=== PATIENT | female | born 1965 | race Caucasian/White ===

== ENCOUNTER → 2018-12-02 | Outpatient (CLI) | payer OTHER, MEDICARE ==
[~2018-12-02] VITALS: Ht 172.7 cm; Wt 111.6 kg
[~2018-12-02] MED LIST: ACYCLOVIR 400400 MG PO; ALBUTEROL SULFAT2 MG INH; AMOXICILLIN 50500 MG PO; ASPIR 8181 MG PO; CLONAZEPAM2 MG PO; CLONIDINE HCL0.1 MG PO; CRESTOR10 MG PO; ERGOCALCIF50000 UNIT PO; ESTRADIOL42.5 GM VAG; GLUCOPHAGE XR750 MG PO; METHYLPHENIDATE10 M2 PO; MIRALAX17 GM PO; MOBIC15 MG PO; OMEPRAZOLE40 MG PO; OXYBUTYNIN CHLO15 MG PO; PROCHLORPERAZINE5 M2 PO; SERTRALINE HCL100 MG PO; SLOW FE142 MG PO; STOOL SOFTENER100 MG PO; SYNTHROID150 MCG PO; VITAMIN B-121000 MC3 PO; WELLBUTRIN SR100 MG PO; ZONISAMIDE 100100 M1 PO
--- NOTE | ~2018-12-02 | P ---
[facility] [place] [address] PROCEDURE REPORT Name: CARIE SZYMANSKI Room #: REG TONI Melgoza#: [id number] Admission: 12/02/18 ������������������ Attend Phys: Tato Ceron Discharge: ������������������ Date of : 61 Report #: [id number] THIS REPORT FOR: //name// CC: Tato Price [facility] DATE OF SERVICE: 12/02/2018 PROCEDURE PERFORMED: Upper endoscopy with biopsies. HISTORY OF PRESENT ILLNESS: The patient is a 53-year-old female with midepigastric abdominal pain. She states it is fairly constant. She does take aspirin as well as Mobic, but also taking Prilosec 40 mg daily long-term for history of reflux. She does report intermittent dysphagia. No previous history of upper endoscopy. She reports black stools at times; however, Hemoccult testing of stools recently reported have been negative. Hemoglobin at 10.8 early November of this year. Plan is for EGD. DESCRIPTION OF PROCEDURE: The risks and benefits of the procedure were explained to the patient those risks including but not limited to bleeding, perforation and the risk of sedation. She understood these risks and gave informed consent. Sedation was given using propofol per anesthesia. Next, using a standard Olympus upper endoscope, the scope was placed in the patient's mouth and advanced under direct vision through the esophagus, stomach and into the second portion of the duodenum. The upper, mid and distal esophagus was all normal. The GE junction was normal. No evidence of esophagitis or stricture. Overall, the gastric mucosa was normal in the fundus. In the mid body, there appears to be a scar from previous PEG tube. This was well healed. In the antrum, there was a [id number] gastritis. No evidence of bleeding, no erosions or ulcerations. Biopsies were obtained to rule out H. pylori. The pylorus was normal and patent. The duodenal bulb, first and second portion were all normal. Biopsies were obtained to rule out the possibility of celiac sprue. The scope was then brought back up into the patient's stomach and a Savary guidewire was inserted through the scope leaving the guidewire in place as the scope was then withdrawn. Next, a 48-Monegasque Savary dilation of the esophagus was performed without difficulty. The wire and dilator removed. The scope was reintroduced into the patient's stomach. There was no evidence of mucosal tear after dilation. The scope was then withdrawn and the procedure terminated. The patient tolerated the procedure well. IMPRESSION: 1. Gastritis. 2. Otherwise normal upper endoscopy. RECOMMENDATIONS: [address] [address] PROCEDURE REPORT Name: JRNAIDACARIE A Room #: REG TONI Melgoza#: [id number] Admission: 12/02/18 ������������������ Attend Phys: Tato Ceron Discharge: ������������������ Date of : 61 Report #: [id number] 1. Await biopsy results. 2. Observe the patient status post dilation. 3. The patient is already on 40 mg of Prilosec per day. Could consider trial of adding Carafate at this time. We also discussed proceeding with ultrasound of the abdomen to rule out the possibility of gallbladder etiology of abdominal pain. As far as her anemia, her hemoglobin was mildly low at 10.8 recently. There has been apparently Hemoccult testing that was negative, would consider monitoring at this point. Thank you for allowing me to participate in her care. ��������������������������������������������� ���������������������������������������� By: ��������������������������������������������� [id number] Tato Price MD /nt
--- NOTE | 2018-12-03 16:06 | PATH ---
[facility] [address] [place] [address] PATHOLOGY RPT PROCEDURE Name: CARIE OROZCO Room #: REG TONI StillRuthie#: [id number] ������������������ Admission: 12/02/18 ������������������ Date of : 61 Discharge: Report #: [id number] Path Case #: [id number] [facility] Accession Number: [id number] . 01 Material submitted: . PART A: small bowel - SMALL BOWEL BIOPSY PART B: stomach - GASTRITIS . 01 Clinical history: . Pre-OP DX: Iron deficiency anemia, abdominal pain Post-OP DX: Gastritis, dysphagia . 02 Diagnosis: A. Small bowel mucosa, small bowel R/O sprue, endoscopic biopsy: - No diagnostic abnormalities present. - Negative for villous blunting or increase in intraepithelial lymphocytes. . B. Gastric mucosa, gastritis R/O H. pylori, endoscopic biopsy: - Mild reactive gastropathy. - Negative for intestinal metaplasia or atrophy. - Negative for Helicobacter pylori (properly controlled immunohistochemical stain performed). (IUV:swathi; 12/03/2018) QMS/12/03/2018 . 02 Electronically signed: . Cheryl Randall MD, Pathologist NPI- [id number] . 01 Gross description: . A. Received in formalin labeled "Carie Orozco, BX small bowel, rule out sprue, Hx of anemia," are 5 segments of troy soft tissue measuring 1.5 x 0.9 x 0.3 cm in aggregate dimensions and ranging from 0.4 to 0.5 cm in maximum dimension. The specimen is submitted entirely in cassette A1. . B. Received in formalin labeled "Carie Orozco, BX gastritis, rule out H. pylori," are 3 segments of troy soft tissue measuring 1.0 x 0.8 x 0.3 cm in aggregate dimensions and ranging from 0.3 to 0.5 cm in maximum dimension. The specimen is submitted entirely in cassette B1. (TSD; 12/02/2018) TOB/TOB . 02 Pathologist provided ICD-10: K31.9 . 02 CPT . [address] [address] PATHOLOGY RPT PROCEDURE Name: CARIE OROZCO A Room #: REG Dwight Melgoza#: [id number] ������������������ Admission: 12/02/18 ������������������ Date of : 61 Discharge: Report #: [id number] Path Case #: [id number] Specimen Comment: A courtesy copy of this report has been sent to Specimen Comment: [phone]. Specimen Comment: Report sent to / DR SOLIZ Performed at: [address], [place], [place] [id number] MD Leo Tovar MD Phone: [phone] Performed at: [address] [id number] MD Cheryl Randall MD Phone: [phone]
== END | disposition home or self-care (01) ==
LOC: GI 09:53
DX: K31.9 Disease of stomach and duodenum, unspecified (principal); R13.19 Other dysphagia; E11.9 Type 2 diabetes mellitus without complications; E78.5 Hyperlipidemia, unspecified; E03.9 Hypothyroidism, unspecified; F32.9 Major depressive disorder, single episode, unspecified; F41.9 Anxiety disorder, unspecified; G47.30 Sleep apnea, unspecified; D64.9 Anemia, unspecified; G43.909 Migraine, unspecified, not intractable, without status migrainosus; K21.9 Gastro-esophageal reflux disease without esophagitis; Z98.890 Other specified postprocedural states; Z96.652 Presence of left artificial knee joint; Z85.828 Personal history of other malignant neoplasm of skin; Z79.899 Other long term (current) drug therapy; Z90.710 Acquired absence of both cervix and uterus; Z91.040 Latex allergy status; Z88.8 Allergy status to other drugs, medicaments and biological substances; Z79.82 Long term (current) use of aspirin
CPT/HCPCS: 62110; 62900